=== PATIENT | male | born 1965 | race African-American/Black ===

== ENCOUNTER 2020-02-24 09:40 | Emergency (ER) | payer MEDICAID ==
[~2020-02-24] VITALS: Ht 162.6 cm; Wt 91.0 kg
[2020-02-24] MEDS ORDERED: IBUPROFEN 600MG TABLET PO ONE (10:15)
[2020-02-24 10:21] VITALS: BP 121/78
== END 2020-02-24 11:33 | disposition home or self-care (01) ==
LOC: ER 10:04
DX: S90.32XA Contusion of left foot, initial encounter (principal); Y93.01 Activity, walking, marching and hiking; Y92.89 Other specified places as the place of occurrence of the external cause; Y99.8 Other external cause status
CPT/HCPCS: 73610; 73630; 99284

== ENCOUNTER 2020-03-12 15:35 | Emergency (ER) | payer MEDICAID ==
[~2020-03-12] VITALS: Ht 162.6 cm; Wt 91.0 kg
[2020-03-12 15:41] VITALS: BP 153/94
== END 2020-03-12 16:55 | disposition home or self-care (01) ==
LOC: ER 15:41
DX: M25.572 Pain in left ankle and joints of left foot (principal); J45.909 Unspecified asthma, uncomplicated
CPT/HCPCS: 82962; 99283